=== PATIENT | male | born 1970 | race Two or more races ===

== ENCOUNTER 2021-06-05 09:00 | Outpatient (CLI) | payer OTHER | END 2021-06-05 09:15 | disposition home or self-care (01) | LOC: PPH VACUNA 09:00 | PROVIDERS: ATTEND Emergency Medicine Pediatric Emergency Medicine | DX: Z23 Encounter for immunization (principal) ==

== ENCOUNTER 2024-08-28 07:02 | Outpatient (CLI) | payer OTHER | END 2024-08-28 07:03 | disposition home or self-care (01) | LOC: NUCLEAR 07:02 | PROVIDERS: ATTEND Internal Medicine | DX: I10 Essential (primary) hypertension (principal) ==